=== PATIENT | female | born 1970 | race Caucasian/White ===

== ENCOUNTER 2017-04-24 14:10 | Emergency (ER) | payer MEDICARE ==
[~2017-04-24 14:10] MED LIST: ACETAMINOPHEN325 M3 PO; ADVIL200 M1 PO; AMOXICILLIN500 M PO; ANUSOL HC25 MG/SUP1 PR; ANUSOL HC25 MG/SUPP PR; BCP; BUSPIRONE HCL5 M1 PO; CALCIUM CH1 TAB.CHE PO; CALCIUM CITRAT1 EA21 PO; CIPRO500 M1 PO; CIPRO500 M2 PO; CLINDAMYCIN HC300 MG PO; COMPAZINE10 MG PO; CYCLOBENZAPRINE10 M1 PO; DARVOCET-N 1001 TAB PO; DELTASONE10 MG PO; DICLOFENAC POTA50 M1 PO; ESGIC-PLUS TABL1 TAB PO; ESTROGEN PO; FIORICET TABLET1 TAB PO; FLEXERIL10 MG PO; HYDROCODON-ACE1 EA17 PO; IBU-200200 MG PO; IBUPROFEN200 M1 PO; IBUPROFEN200 MG; IBUPROFEN800 M1 PO; IBUPROFEN800 MG PO; IMITREX4 MG/0.5 M; K DUR NG; KLONOPIN0.5 MG PO; LORTAB 5/500 TA1 TAB PO; LYRICA100 MG/CAP; LYRICA150 MG PO; LYRICA150 MG/CAP PO; LYRICA50 MG/CAP PO; MOBIC7.5 M2 PO; MULTI VITAMIN1 EAC1 PO; NO HOME MEDS; NO MEDS; NORCO 10/325 TA1 TAB PO; NORCO 5-325 TA1 EACH PO; NORCO 5/325 TAB1 TAB; NORCO 5/325 TAB1 TAB PO; NORCO 7.5/325 T1 TAB PO; OMEPRAZOLE20 MG PO; ORTHO EST PO; PEN-VEE K500 MG PO; PEPCID AC10 MG; PEPTO-BISM262 MG/15 PO; PHENERGAN25 M1 PO; PHENERGAN25 MG PO; POTASSIUM CHLO10 ME1 PO; PRILOSEC OTC20 MG; PRILOSEC OTC20 MG PO; PRILOSEC20 MG; PROTONIX40 M1 PO; PROZAC20 M1 PO; PROZAC20 MG PO; PYRIDIUM200 M1 PO; ROBAXIN500 MG PO; SKELAXIN800 MG PO; SOMA250 M1 PO; SOMA350 MG PO; SULINDAC200 MG; TOPAMAX25 MG PO; TOPAMAX50 M2 PO; TRAMADOL HCL50 M2 PO; TRAMADOL HCL50 MG; TRAMADOL HCL50 MG PO; TYLENOL WITH C1 EACH PO; TYLENOL325 MG PO; TYLENOL500 MG; ULTRAM50 MG PO; VICODIN 5/500 T1 TAB PO; XANAX0.25 MG PO; ZOFRAN ODT4 MG PO; ZOFRAN ODT4 MG/UDTAB PO; ZOFRAN4 M1 PO; ZOLOFT25 MG PO; no home meds
[2017-04-24 16:48] LABS: BASO % 0.5 % (0-2); EOS % 0.6 % (0-7); EOSINOPHIL ABSOLUTE COUNT 0.1 tho/cmm (0.0-0.7); HGB-HEMOGLOBIN 12.2 gm/dl (12.0-15.5); IMMATURE GRANULOCYTES ABSOLUTE 0.01 tho/cmm (0-0.03); IMMATURE GRANULOCYTES PERCENT 0.1 % (0-0.3); LYMPH % 23.2 % (20-45); MCH (MEAN CORPUSCULAR HGB) 32.4 pg (28.0-32.0); MCV (MEAN CELL VOLUME) 98.1 fl (82.0-96.0); MEAN PLATELET VOLUME 9.8 cmc (9.4-12.4); MONO % 7.1 % (0-12); MONOCYTE ABSOLUTE COUNT 0.6 tho/cmm (0.0-1.2); NEUTROPHIL ABSOLUTE COUNT 5.8 tho/cmm (1.6-8.0); NEUTROPHIL-AUTOMATED 5.8 tho/cmm (1.6-8.0); NEUTROPHILS % 68.5 % (40-80); PLATELET COUNT 221 tho/cmm (150-450); RED BLOOD COUNT 3.77 mil/cmm (4.00-5.20); RED CELL DISTRIBUTION WIDTH 12.6 % (12.4-16.4); WHITE BLOOD COUNT 8.5 tho/cmm (4.0-10.0)
[2017-04-24 17:00] LABS: ANION GAP 11 mmol/L (0-20); BLOOD UREA NITROGEN 11 mg/dl (6-24); CALCIUM 8.7 mg/dl (8.5-10.5); CARBON DIOXIDE-VENOUS 27 mmol/L (22-32); CHLORIDE 108 mmol/l (96-110); CREATININE 0.55 mg/dl (0.50-1.10); GLUCOSE 119 mg/dL (70-110); POTASSIUM 3.6 mmol/L (3.7-5.1); SODIUM 142 mmol/L (135-145); eGFR VALUE FOR BLACK >90 mL/Min
[2017-04-24] MEDS ORDERED: TYLENOL WITH C1 EACH PO (18:10)
[2017-04-24] MEDS ORDERED: CLINDAMYCIN HC300 M2 PO (18:10)
[2017-06-01] MEDS ORDERED: EFFEXOR XR150 M1 PO (22:21)
[2017-07-10] MEDS ORDERED: TYLENOL WITH C1 EACH PO (18:46)
== END 2017-04-24 18:35 ==
LOC: EDMED 14:10
PROVIDERS: Physician Assistant
DX: L03.213 Periorbital cellulitis (principal); E03.9 Hypothyroidism, unspecified; F17.210 Nicotine dependence, cigarettes, uncomplicated
CPT/HCPCS: J1885; J2270; Q9967